=== PATIENT | female | born 1965 | race Caucasian/White ===

== ENCOUNTER 2019-01-13 13:18 | Emergency (ER) | payer MEDICAID ==
[~2019-01-13] VITALS: Ht 160 cm; Wt 77.5 kg
[~2019-01-13 13:18] MED LIST: CLON0.1T2 PO; LISI-662 PO; METF-960 PO
[2019-01-13 16:29] VITALS: BP 120/80
[2019-01-13] MEDS ORDERED: ALBUTEROL SULFATE HFA 90 MCG/PUFF 8 GM INHALER IH ONE (17:00)
== END 2019-01-13 17:19 | disposition home or self-care (01) ==
LOC: EMS 13:19
DX: T40.1X1A Poisoning by heroin, accidental (unintentional), initial encounter (principal); E11.9 Type 2 diabetes mellitus without complications; I10 Essential (primary) hypertension; F17.210 Nicotine dependence, cigarettes, uncomplicated; Z79.84 Long term (current) use of oral hypoglycemic drugs; Z79.899 Other long term (current) drug therapy; J45.909 Unspecified asthma, uncomplicated; Y92.89 Other specified places as the place of occurrence of the external cause
CPT/HCPCS: 94640; 99406; J3535

== ENCOUNTER 2019-06-08 14:37 | Emergency (ER) | payer MEDICAID ==
[~2019-06-08 14:37] MED LIST changes: -CLON0.1T2 PO; +CLON0.1T83 PO
== END 2019-06-08 15:03 | disposition left against medical advice (07) ==
LOC: EMS 14:52
DX: E11.9 Type 2 diabetes mellitus without complications (principal); Z53.21 Procedure and treatment not carried out due to patient leaving prior to being seen by health care provider